=== PATIENT | female | born 1995 | race African-American/Black ===

== ENCOUNTER 2018-10-01 13:56 | Emergency (ER) | payer OTHER, SELFPAY ==
[2018-10-01 14:38] LABS: Mean Corpuscular HGB CONC 35.8 g/dL (32.0-36.0); Mean Corpuscular Hemoglobin 27.9 pg (25.0-35.0); Mean Corpuscular Volume 77.9 fL (78.0-98.0); Mean Platelet Volume 7.2 fL (7.4-10.4); Platelet Count 386 thou/uL (130-400); RBC Distribution Width 13.8 % (11.5-14.5); White Blood Cell (WBC) Count 7.2 thou/uL (4.8-10.8)
[2018-10-01 14:54] LABS: Eosinophils 3 % (0-10); Lymphocytes 43 % (28-48); MDiff Complete? YES; Monocytes 6 % (0-4); Neutrophil 42 % (31-61); PLT Morphology Comment Appears Adequate; RBC Morphology Normal; Reactive Lymphocytes 5 % (0-10)
--- NOTE | 2018-10-01 16:08 | ULT ---
PELVIC ULTRASOUND INCLUDING TRANSABDOMINAL AND TRANSVAGINAL AND VASCULAR DUPLEX WITH COLOR AND SPECTR AL DOPPLER IMAGIN10/01/18 HISTORY: 22-year-old female with history of and vaginal bleeding. The uterus measures 9.4 x 5.3 x 6.6 cm. The right ovary measures 3.2 x 3.0 x 1.9 cm. The left ovary m easures 3.3 x 2.4 x 1.7 cm. There is a gestational sac with a pole. heart rate 118 bpm. T here is a yolk sac. There is a cyst in the region of the cervix measuring 2.3 x 2.3 x 2.8 cm, felt to be a large Nabothian cyst. Small 1.4 x 1.2 cm diameter hypoechoic focus in the left ovary probably a degenerating cyst. Minimal free cul-de-sac fluid. Vascular flow is documented to both ovaries. No ev idence of ovarian torsion. [place]-rump length equals 0.7 cm equivalent to 6 weeks, 3 days gestation. IMPRESSION: Early viable intrauterine at 6 weeks, 2 days. EDC 05/25/19. No convincing evidence for signi ficant retrochorionic hemorrhage. POS: [facility]
[2018-10-01 17:21] LABS: Bilirubin Negative (Negative); Blood, Urine Moderate (Negative); Clarity TURBID (Clear); Glucose, Urine (Dipstick) Negative (Negative); Leukocyte Negative (Negative); Nitrite Negative (Negative); Protein, Urine (Dipstick) Negative (Neg-Trace); Specific Gravity, Urine 1.014 (1.002-1.036); Urobilinogen 0.2 mg/dL (0.2-1.0); pH, Urine 7.5 (5.0-9.0)
[2018-10-01 17:26] LABS: Bacteria/HPF None Seen HPF (None Seen); Hyaline Casts/LPF 0-3 HYALINE CAST LPF (0-3 Hyaline); Pathc Cast-AUWi Flag 0.87 (0-2.49); Squamous Epithelial 0-3 HPF (0-3); WBC/HPF 0-3 HPF (0-3)
[2018-10-01 17:35] LABS: Crystals/HPF 2+ AMORPH PHOS HPF (Negative)
== END 2018-10-01 17:13 | disposition home or self-care (01) ==
LOC: ERS 13:56
DX: O20.0 Threatened abortion (principal); Z3A.01 Less than 8 weeks gestation of pregnancy
CPT/HCPCS: 36415; 76856; 81003; 81015; 84702; 85025; 86900; 86901

== ENCOUNTER 2018-10-02 14:45 | Emergency (ER) | payer SELFPAY ==
[2018-10-02 16:56] LABS: Hemoglobin 12.6 g/dL (12.0-16.0); Mean Corpuscular HGB CONC 35.6 g/dL (32.0-36.0); Mean Corpuscular Hemoglobin 27.8 pg (25.0-35.0); Mean Platelet Volume 7.3 fL (7.4-10.4); Platelet Count 386 thou/uL (130-400); RBC Distribution Width 13.8 % (11.5-14.5); Red Blood Cell (RBC) Count 4.54 mill/uL (4.00-5.20); White Blood Cell (WBC) Count 7.9 thou/uL (4.8-10.8)
[2018-10-02 17:34] LABS: Eosinophils 3 % (0-10); Lymphocytes 44 % (28-48); MDiff Complete? YES; Monocytes 7 % (0-4); Neutrophil 43 % (31-61); PLT Morphology Comment Appears Adequate; RBC Morphology Normal; Reactive Lymphocytes 2 % (0-10)
--- NOTE | 2018-10-02 19:58 | ULT ---
PELVIC ULTRASOUND INCLUDING TRANSABDOMINAL, TRANSVAGINAL, AND VASCULAR DUPLEX WITH COLOR AND SPECTRAL DOPPLER IMAGIN10/02/18 HISTORY: 22-year-old female with history of , vaginal bleeding. The uterus measures 9.2 x 4.5 x 5.1 cm. Endometrium is 0.5 cm. Right ovary 1.9 x 3.0 x 2.3 cm. Left ovary 2.6 x 3.6 x 1.4 cm. Comparison is made to 10/01/18 study, at that time the patient did have an intrauterine gestation sac a nd pole. There is no intrauterine gestational sac noted on today's exam. Again noted is a large cervical cyst which is stable presumed a large Nabothian cyst. IMPRESSION: Evidence for spontaneous . No evidence for residual gestational sac within the uterus. Unrema rkable adnexa. Stable cervical cyst. No abnormal pelvic fluid collection. POS: [facility]
== END 2018-10-02 18:59 | disposition home or self-care (01) ==
LOC: ERS 14:45
DX: O03.9 Complete or unspecified spontaneous abortion without complication (principal)
CPT/HCPCS: 36415; 76856; 84702; 85025

== ENCOUNTER 2019-03-10 13:10 | Emergency (ER) | payer SELFPAY ==
[2019-03-10 14:09] LABS: Hemoglobin 11.8 g/dL (12.0-16.0); Mean Corpuscular HGB CONC 35.6 g/dL (32.0-36.0); Mean Corpuscular Hemoglobin 28.4 pg (27.0-31.0); Mean Corpuscular Volume 79.8 fL (78.0-98.0); Mean Platelet Volume 6.7 fL (7.4-10.4); Platelet Count 354 thou/uL (130-400); RBC Distribution Width 13.2 % (11.5-14.5); Red Blood Cell (RBC) Count 4.15 mill/uL (4.20-5.40); White Blood Cell (WBC) Count 8.2 thou/uL (4.8-10.8)
[2019-03-10 14:25] LABS: ALT (SGPT) Less than 7 U/L (8-55); AST (SGOT) 11 U/L (5-34); Albumin 3.8 g/dL (3.5-5.0); Alkaline Phosphatase 44 U/L (40-150); Anion Gap 10 mmol/L (10-20); BUN (Urea Nitrogen) 4 mg/dL (7.0-18.7); Bilirubin, Total 0.3 mg/dL (0.2-1.2); Calc. Creatinine Clearance 0 mL/min (70-130); Calcium 9.5 mg/dL (7.8-10.44); Carbon Dioxide 24 mmol/L (22-29); Chloride 105 mmol/L (98-107); Estimated GFR-MDRD Greater than 90; Globulin 3.1 g/dL (2.4-3.5); Glucose 104 mg/dL (70-105); Potassium 3.3 mmol/L (3.5-5.1); Protein, Total 6.9 g/dL (6.0-8.3); Sodium 136 mmol/L (136-145)
[2019-03-10 14:35] LABS: Hypochromia SLIGHT = 6-15 cells (100X) (0-5/hpf); Lymphocytes 22 % (21-51); MDiff Complete? YES; Monocytes 6 % (0-10); Neutrophil 72 % (42-75); Platelet Morphology Comment Appears Adequate
[2019-03-10 15:22] LABS: Bilirubin Negative (Negative); Blood, Urine Negative (Negative); Clarity TURBID (Clear); Glucose, Urine (Dipstick) Negative (Negative); Leukocyte Small (Negative); Nitrite Negative (Negative); Protein, Urine (Dipstick) Negative (Neg-Trace); Specific Gravity, Urine 1.016 (1.002-1.036); Urobilinogen 0.2 mg/dL (0.2-1.0); pH, Urine 7.5 (5.0-9.0)
[2019-03-10 15:23] LABS: Pregnancy Test - Urine (BHCG) POSITIVE (Negative); Pregu Control Background? CLEAR/WHITE (CLR/WHITE); Pregu Control Bar Appear? YES (CONTROL BAR); Specific Gravity 1.016 (1.002-1.036)
[2019-03-10 15:24] LABS: Bacteria/HPF 1+ HPF (None Seen); Hyaline Casts/LPF 4-6 HYALINE CAST LPF (0-3 Hyaline); Squamous Epithelial 0-3 HPF (0-3)
[2019-03-10 15:30] LABS: Crystals/HPF 2+ AMORPH URATES HPF (Negative); RBC/HPF None Seen HPF (0-3)
--- NOTE | 2019-03-10 16:58 | ULT ---
OB ULTRASOUND AT GREATER THAN FOURTEEN WEEKS: HISTORY: Pain. FINDINGS: A single viable intrauterine fetus is noted in breech presentation. The placenta is anterior. Amnio tic fluid is within normal limits. heart rate is 147 beats per minute, LIMITED ANATOMY: Head, four-chamber heart, stomach, kidneys, cord insertion, and bladder regions are demonstrated. BIOMETRY: BPD: 3.7 cm (17 weeks 2 days). HEAD CIRCUMFERENCE: 14.3 cm (17 weeks 4 days). ABDOMINAL CIRCUMFERENCE: 11.3 cm (17 weeks 0 days). FEMUR LENGTH: 2.3 cm (17 weeks 0 days). IMPRESSION: 1. Single viable intrauterine fetus, in breech presentation, at 17 weeks 1 day, with expected date o f confinement 08/17/2019 and estimated weight 182 g. 2. heart rate 147 beats per minute. 3. No evidence for abruptio placenta or placenta previa. 4. Incidental venous lakes noted posterior to the placenta. POS: [facility]
[2019-03-10] MEDS ORDERED: Azithromycin 250 MG TAB ONE (17:53)
[2019-03-10] MEDS ORDERED: cefTRIAXone\\ROCEPHIN 250 MG VIAL ONE (17:53)
[2019-03-10] MEDS ORDERED: Lidocaine 1% PF 5 ML VIAL ONE (17:53)
[2019-03-12 00:02] LABS: Chlamydia by PCR DETECTED (NotDetected); GC by PCR DETECTED (NotDetected)
== END 2019-03-10 17:50 | disposition home or self-care (01) ==
LOC: ERS 13:10
DX: O99.89 Other specified diseases and conditions complicating pregnancy, childbirth and the puerperium (principal); R10.30 Lower abdominal pain, unspecified; Z3A.17 17 weeks gestation of pregnancy
CPT/HCPCS: 36415; 76815; 80053; 81003; 81015; 81025; 84702; 85025; 86900; 86901; 87077; 87086; 87186; 87480; 87491; 87510; 87591; 87660; 93005; 96372; J0696; J2001

== ENCOUNTER 2019-03-12 11:39 | Emergency (ER) | payer SELFPAY | END 2019-03-12 14:22 | disposition home or self-care (01) | LOC: ERS 11:39 | DX: O99.89 Other specified diseases and conditions complicating pregnancy, childbirth and the puerperium (principal); R55 Syncope and collapse; Z3A.17 17 weeks gestation of pregnancy | CPT/HCPCS: 36416; 93005; 99284 ==

== ENCOUNTER 2019-04-29 13:51 | Outpatient (CLI) | payer OTHER ==
--- NOTE | 2019-04-29 16:11 | ULT ---
OBSTETRICAL ULTRASOUND 04/29/19 HISTORY: Obstetrical ultrasound for size, dates and survey. FINDINGS: Single live intrauterine gestation in cephalic presentation. The placenta is anterior in location wit hout evidence of previa. MEGGAN measures 12.9 cm. The head, heart, stomach, kidneys, cord insertion, bladder, spine, lips and nose and three vess el cord appear within normal limits. Biparietal diameter was 5.84 cm giving an estimated gestational age of 24 weeks, 0 days. Head circumference was 21.69 cm giving an estimated gestational age of 23 weeks, 6 days. Abdominal circumference measured 18.84 cm giving an estimated gestational age of 23 weeks, 5 days. Femoral length was 4.24 cm giving an estimated gestational age of 23 weeks, 6 days. The estimated weight is 1 lb. 6 oz +/- 3 oz (35th percentile). The estimated gestational age based on ultrasound biometric measurements is 23 weeks, 6 days. Estimat ed due date of 08/20/19. This corresponds to the clinical dates. IMPRESSION: Single live intrauterine gestation with size and dates. POS: [facility]
== END 2019-04-29 13:52 | disposition home or self-care (01) ==
LOC: BICULT 13:51
PROVIDERS: ATTEND Nurse Practitioner
DX: Z34.82 Encounter for supervision of other normal pregnancy, second trimester (principal); Z3A.23 23 weeks gestation of pregnancy
CPT/HCPCS: 76805

== ENCOUNTER 2019-08-04 10:08 | Day surgery (SDC) | payer OTHER ==
[2019-08-04 11:20] VITALS: BMI 34.9
[2019-08-04] MEDS ORDERED: hydrALAZINE 20 MG/ML VIAL SLOW IVP PRN (12:02)
[2019-08-04] MEDS ORDERED: Ondansetron ODT 8 MG TAB SL SCH (12:15)
[2019-08-04] MEDS ORDERED: Morphine 4 MG/ML VIAL IM SCH (12:15)
--- NOTE | 2019-08-04 14:07 | PRG ---
DATE OF SERVICE: 08/04/2019 PRIMARY OB: Dr. Eleazar Cohen. CHIEF COMPLAINT: Abdominal pains. HISTORY OF PRESENT ILLNESS: The patient is a 23-year-old, G3, P1 female with an intrauterine at 37 weeks and 5 days, presenting with abdominal pains that began earlier this morning. She reports that her pain is mainly associated with activity and movement such as getting out of bed and out of car, walking, and lifting. She reports that she was seen in the office a few days ago and was noted to be 3 to 4 cm dilated. She denies any leakage of fluid, any vaginal bleeding. She is unable to communicate the frequency of feeling contractions. The patient denies leakage of fluid or vaginal bleeding. She denies any fever, fall, headache, or chest pain. She does report some shortness of breath that she just associates with . She denies nausea, vomiting, diarrhea, constipation, hip problems, knee problems, or muscle weakness. Denies leakage of fluid, vaginal bleeding, urinary urgency, or frequency. PAST MEDICAL HISTORY: Negative. PAST SURGICAL HISTORY: Negative. SOCIAL HISTORY: The patient has a history of marijuana use, but denies current drug, alcohol, or tobacco use. ALLERGIES: NO KNOWN DRUG ALLERGIES. MEDICATIONS: vitamins. OB LABS: Blood type is O positive. Antibody screen is negative. RPR in the first and third trimester negative. HIV in the first and third trimester negative. Hepatitis B surface antigen is negative. She is rubella immune. GBS is negative. Her one-hour Glucola is 95. REVIEW OF SYSTEMS: Per HPI. PHYSICAL EXAMINATION: VITAL SIGNS: Blood pressure is 114/66, heart rate of 101, respiratory rate of 20, saturating 99% on room air, and temperature 98.6. GENERAL: She appears to be in no acute distress. She is alert, oriented, cooperative, and pleasant to interact with. HEAD: Normocephalic and atraumatic. LUNGS: Clear to auscultation bilaterally. HEART: Has regular rate and rhythm. ABDOMEN: Gravid and soft. She does have some tenderness in the lower pelvic region with deviation of the uterus to the left and right. EXTREMITIES: Nontender and nonedematous. CERVICAL: Per nursing staff is 2.5, 60, and -2 station. heart tracing shows the fetus with a baseline in the 130s with moderate long-term variability, positive 15 x 15 accelerations, no decelerations. She is alert, oriented, cooperative, and pleasant to interact. Tocometer shows a single contraction over 45-minute period. ASSESSMENT AND PLAN: The patient is a 23-year-old female with an intrauterine at 37 weeks and 5 days presenting with musculoskeletal pains of . We have given her reassurance. The patient desires pain medication to assist with her discomfort. We will be giving her 8 mg of morphine IM plus 8 mg of Zofran p.o. Cervix to be rechecked here in an hour and if there is no cervical change, she will be discharged to home with term labor precautions. She has instructions to follow up with her primary OB on as scheduled. Fetus has a reactive NST and category 1 tracing. Job ID: [id number] [id number]
== END 2019-08-04 14:12 | disposition home health service (06) ==
LOC: L&D/OP 10:08
PROVIDERS: ATTEND Family Medicine
DX: O99.89 Other specified diseases and conditions complicating pregnancy, childbirth and the puerperium (principal); R10.9 Unspecified abdominal pain; Z3A.37 37 weeks gestation of pregnancy
CPT/HCPCS: J2270

== ENCOUNTER 2019-08-05 11:32 | Inpatient (IN) | payer OTHER ==
[~2019-08-05 11:32] MED LIST: ePHEDrine/0.9% NaCl/PF SYRINGE 50 mg/10 ml ONE
[2019-08-05] MEDS ORDERED: hydrALAZINE 20 MG/ML VIAL SLOW IVP PRN ×2 (11:44→19:38)
[2019-08-05] MEDS ORDERED: HYDROcodone/Acetaminophen 5/325 mg Tablet PO PRN ×3 (11:44→19:38)
[2019-08-05] MEDS ORDERED: Butorphanol Tartrate 1 MG/ML VIAL SLOW IVP PRN (11:44)
[2019-08-05] MEDS ORDERED: NS / Oxytocin 40 units/1000ml 1,000 ML IV PRN (11:44)
[2019-08-05] MEDS ORDERED: Misoprostol 200 MCG TAB PR PRN (11:44)
[2019-08-05] MEDS ORDERED: Ibuprofen 800 MG TAB PO PRN (11:44)
[2019-08-05] MEDS ORDERED: Diphenoxylate HCl/Atropine Tablet PO PRN (11:44)
[2019-08-05] MEDS ORDERED: Promethazine HCl 25 MG/ML VIAL IM PRN ×3 (11:44→19:38)
[2019-08-05] MEDS ORDERED: Methylergonovine 0.2 MG/ML VIAL IM PRN (11:44)
[2019-08-05] MEDS ORDERED: Carboprost 250 MCG/ML AMP IM PRN (11:44)
[2019-08-05] MEDS ORDERED: Lidocaine 1% (PF) 30 ML VIAL SC PRN (11:44)
[2019-08-05] MEDS ORDERED: Ondansetron PF 4 MG/2 ML Vial IVP PRN ×3 (11:44→19:38)
[2019-08-05] MEDS ORDERED: Lactated Ringer's 1,000 ML IV SCH (11:45)
[2019-08-05] MEDS ORDERED: NS w/ Oxytocin 10 units 500 ML IV SCH ×2 (11:45)
[2019-08-05 12:04] VITALS: BMI 34.7
[2019-08-05 12:19] LABS: Hemoglobin 11.3 g/dL (12.0-16.0); Mean Corpuscular HGB CONC 36.1 g/dL (32.0-36.0); Mean Corpuscular Hemoglobin 28.4 pg (27.0-31.0); Mean Corpuscular Volume 78.7 fL (78.0-98.0); Mean Platelet Volume 6.6 fL (7.4-10.4); Platelet Count 323 thou/uL (130-400); RBC Distribution Width 13.3 % (11.5-14.5); Red Blood Cell (RBC) Count 3.97 mill/uL (4.20-5.40); White Blood Cell (WBC) Count 7.9 thou/uL (4.8-10.8)
[2019-08-05] MEDS ORDERED: Fentanyl 4 mcg/Bup 0.1% Cadd 100 ML ONE (12:37)
[2019-08-05 13:02] LABS: HBSAg Index 0.17 S/CO (0-0.99); Hep B Surf Ag Non-Reactive S/CO (NonReactive); Syphilis Antibody Nonreactive (Nonreactive); Syphilis Antibody Index 0.04 S/CO (<1.00 Non-Reactive)
[2019-08-05] MEDS ORDERED: ePHEDrine/0.9% NaCl/PF SYRINGE 50 mg/10 ml SLOW IVP PRN (14:29)
[2019-08-05] MEDS ORDERED: Acetaminophen 325 MG TAB PO PRN (14:29)
[2019-08-05] MEDS ORDERED: diphenhydrAMINE 50 MG/ML VIAL IVP PRN (14:29)
[2019-08-05] MEDS ORDERED: Naloxone HCl 0.4 mg/ml Vial IVP PRN ×2 (14:29)
[2019-08-05] MEDS ORDERED: Lactated Ringer's 500 ML IV PRN (14:29)
[2019-08-05] MEDS ORDERED: Communication Order-Pharmacy FS SCH (14:30)
[2019-08-05] MEDS ORDERED: Fentanyl 4 mcg/Bupivacaine 0.1% Cassette 100 ML EPIDURAL SCH (14:30)
[2019-08-05] MEDS ORDERED: Lanolin Ointment 7 GM TUBE TOP PRN (19:38)
[2019-08-05] MEDS ORDERED: Milk Of Magnesia 30 ML UDCUP PO PRN (19:38)
[2019-08-05] MEDS ORDERED: Preparation H Ointment 28 GM TUBE PR PRN (19:38)
[2019-08-05] MEDS ORDERED: NS / Oxytocin 40 units/1000ml 1,000 ML IV SCH (19:38)
[2019-08-05] MEDS ORDERED: diphenhydrAMINE 25 MG CAP PO PRN (19:38)
[2019-08-05] MEDS ORDERED: Bisacodyl 10 MG SUPP PR PRN (19:38)
[2019-08-05] MEDS ORDERED: Adacel (T-DAP) 0.5 ML SYRINGE IM ONE (19:38)
[2019-08-05] MEDS ORDERED: Benzocaine-Menthol 82.5 ML CAN TOP PRN (19:38)
[2019-08-05] MEDS ORDERED: Sodium Chloride 0.9% 10 ML ONE (20:47)
[2019-08-05] MEDS: Docusate Calcium (SURFAK) 240 MG CAP PO SCH (20:52)
[2019-08-05] MEDS: Ibuprofen 800 MG TAB PO SCH (20:52)
[2019-08-05] MEDS: Ferrous Sulfate 325 MG TAB PO SCH (23:16)
[2019-08-06 05:20] LABS: Hemoglobin 10.3 g/dL (12.0-16.0); Mean Corpuscular HGB CONC 35.7 g/dL (32.0-36.0); Mean Corpuscular Hemoglobin 28.2 pg (27.0-31.0); Mean Corpuscular Volume 79.1 fL (78.0-98.0); Mean Platelet Volume 6.9 fL (7.4-10.4); Platelet Count 273 thou/uL (130-400); RBC Distribution Width 13.2 % (11.5-14.5); Red Blood Cell (RBC) Count 3.65 mill/uL (4.20-5.40); White Blood Cell (WBC) Count 9.3 thou/uL (4.8-10.8)
[2019-08-06] MEDS: Ibuprofen 800 MG TAB PO SCH ×3 (06:19→21:35)
[2019-08-06] MEDS: Prenatal Vitamin 1 TAB PO SCH (08:24)
[2019-08-06] MEDS: Docusate Calcium (SURFAK) 240 MG CAP PO SCH ×2 (08:25→21:35)
[2019-08-06] MEDS: Ferrous Sulfate 325 MG TAB PO SCH ×2 (08:25→15:18)
[2019-08-06] MEDS ORDERED: FLU VACC QS2019-20(6MOS UP)/PF 60 MCG/0.5 ML SYRINGE IM ONE (12:30)
[2019-08-07] MEDS: Ibuprofen 800 MG TAB PO SCH ×2 (06:15→13:33)
[2019-08-07 07:45] VITALS: BP 116/71; TEMP 98.5
[2019-08-07] MEDS: Docusate Calcium (SURFAK) 240 MG CAP PO SCH (08:40)
[2019-08-07] MEDS: Prenatal Vitamin 1 TAB PO SCH (08:40)
[2019-08-07] MEDS: Ferrous Sulfate 325 MG TAB PO SCH ×2 (08:41→16:39)
== END 2019-08-07 17:30 | disposition home or self-care (01) | DRG 807 ==
LOC: L&D 11:32 → 3SW 19:55
PROVIDERS: ADMIT Family Medicine; ATTEND Family Medicine
PROC: 10E0XZZ Delivery of Products of Conception, External Approach (ICD-10-PCS; principal; 2019-08-05)
PROC: 10907ZC Drainage of Amniotic Fluid, Therapeutic from Products of Conception, Via Natural or Artificial Opening (ICD-10-PCS; 2019-08-05)
PROC: 3E02340 Introduction of Influenza Vaccine into Muscle, Percutaneous Approach (ICD-10-PCS; 2019-08-06)
DX: O80 Encounter for full-term uncomplicated delivery (principal); Z37.0 Single live birth; Z3A.37 37 weeks gestation of pregnancy; Z23 Encounter for immunization
CPT/HCPCS: 36415; 51702; 85027; 86780; 86850; 86900; 86901; 87340; J2590

== ENCOUNTER 2020-02-20 08:28 | Emergency (ER) | payer OTHER ==
[2020-02-20] MEDS ORDERED: Ondansetron PF 4 MG/2 ML Vial ONE (08:37)
[2020-02-20] MEDS ORDERED: Lidocaine Viscous Sol 2% 15 ml UD Cup ONE (08:59)
[2020-02-20] MEDS ORDERED: Mag-Al 1200 mg/1200 mg/30 ML UDCUP ONE (08:59)
[2020-02-20] MEDS ORDERED: Pantoprazole 40 MG VIAL ONE (08:59)
[2020-02-20 09:07] LABS: Hemoglobin 13.1 g/dL (12.0-16.0); Mean Corpuscular HGB CONC 33.9 g/dL (32.0-36.0); Mean Corpuscular Hemoglobin 27.8 pg (27.0-31.0); Mean Corpuscular Volume 81.9 fL (78.0-98.0); Mean Platelet Volume 7.5 fL (7.4-10.4); Platelet Count 378 thou/uL (130-400); RBC Distribution Width 13.1 % (11.5-14.5); Red Blood Cell (RBC) Count 4.71 mill/uL (4.20-5.40); White Blood Cell (WBC) Count 6.6 thou/uL (4.8-10.8)
[2020-02-20 09:18] LABS: ALT (SGPT) 13 U/L (8-55); AST (SGOT) 17 U/L (5-34); Albumin 4.6 g/dL (3.5-5.0); Alkaline Phosphatase 62 U/L (40-110); Anion Gap 11 mmol/L (10-20); BUN (Urea Nitrogen) 10 mg/dL (7.0-18.7); Bilirubin, Total 0.5 mg/dL (0.2-1.2); Calc. Creatinine Clearance 0 mL/min (70-130); Calcium 9.3 mg/dL (7.8-10.44); Carbon Dioxide 24 mmol/L (22-29); Chloride 107 mmol/L (98-107); Estimated GFR-MDRD Greater than 90; Globulin 3.4 g/dL (2.4-3.5); Glucose 92 mg/dL (70-105); Lipase 53 U/L (8-78); Potassium 3.9 mmol/L (3.5-5.1); Sodium 138 mmol/L (136-145)
[2020-02-20 09:31] LABS: Eosinophils 1 % (0-10); Lymphocytes 46 % (21-51); MDiff Complete? YES; Monocytes 11 % (0-10); Neutrophil 41 % (42-75); Platelet Morphology Comment Appears Adequate; RBC Morphology Normal
[2020-02-20 10:10] LABS: Pregnancy Test - Urine (BHCG) Negative (Negative)
[2020-02-20 10:11] LABS: Pregu Control Background? CLEAR/WHITE (CLR/WHITE); Pregu Control Bar Appear? YES (CONTROL BAR); Specific Gravity 1.021 (1.002-1.036)
[2020-02-20 10:17] LABS: Bacteria/HPF 4+ HPF (None Seen); Bilirubin Negative (Negative); Blood, Urine Negative (Negative); Clarity Clear (Clear); Glucose, Urine (Dipstick) Normal (Negative); Leukocyte 250 Leu/uL (Negative); Nitrite 2+ (Negative); Protein, Urine (Dipstick) 20 mg/dL (Neg-Trace); RBC/HPF 0-3 HPF (0-3); Squamous Epithelial 0-3 HPF (0-3); Urobilinogen Normal mg/dL (Less than 2); WBC/HPF Greater than 50 HPF (0-3)
[2020-02-20 19:40] LABS: SARS-CoV-2 MS2 Positive; SARS-CoV-2 N Gene Negative; SARS-CoV-2 S Gene Negative; SARS-CoV-2 orf1ab Negative
== END 2020-02-20 11:15 | disposition home or self-care (01) ==
LOC: ERS 08:28
DX: N39.0 Urinary tract infection, site not specified (principal); R11.2 Nausea with vomiting, unspecified; R10.9 Unspecified abdominal pain; F17.210 Nicotine dependence, cigarettes, uncomplicated
CPT/HCPCS: 80053; 81003; 81015; 81025; 83690; 85025; 87635; 96361; 96372; 96374; C9113; J0500; J2405; U0003

== ENCOUNTER 2022-03-06 14:04 | Emergency (ER) | payer OTHER ==
[2022-03-06] MEDS ORDERED: Lidocaine 1% PF 5 ML VIAL ONE (15:32)
[2022-03-06] MEDS ORDERED: cefTRIAXone\\ROCEPHIN 500 MG VIAL ONE (15:32)
[2022-03-06 15:44] LABS: Pregnancy Test - Urine (BHCG) Negative (Negative); Pregu Control Background? CLEAR/WHITE (CLR/WHITE); Pregu Control Bar Appear? YES (CONTROL BAR); Specific Gravity 1.003 (1.002-1.036)
== END 2022-03-06 15:50 | disposition home or self-care (01) ==
LOC: ERS 14:04
DX: Z20.2 Contact with and (suspected) exposure to infections with a predominantly sexual mode of transmission (principal); F17.210 Nicotine dependence, cigarettes, uncomplicated
CPT/HCPCS: 81025; 96372; 99283; J0696

== ENCOUNTER 2022-06-13 07:57 | Emergency (ER) | payer OTHER | END 2022-06-13 09:40 | disposition home or self-care (01) | LOC: ERS 07:57 | DX: L02.511 Cutaneous abscess of right hand (principal); F17.210 Nicotine dependence, cigarettes, uncomplicated ==